=== PATIENT | male | born 1960 | race African-American/Black ===

== ENCOUNTER 2017-03-10 04:17 | Inpatient (IN) | payer OTHER ==
[2017-03-10] MEDS ORDERED: NITROGLYCERIN SL TABS 0.4 MG TAB SUBLINGUAL PRN ×2 (04:18→14:32)
[2017-03-10] MEDS ORDERED: ASPIRIN 81 MG CHEW PO STA ×2 (04:18)
[2017-03-10] MEDS ORDERED: SODIUM CHLORIDE 0.9% 1,000 ML IV STA (04:18)
[2017-03-10] MEDS ORDERED: MORPHINE SULFATE 4 MG/ML SYRINGE IV PRN (04:18)
--- NOTE | 2017-03-10 04:20 | ED ---
General Adult HPI - General Stated complaint: chest pain Time Seen by Provider: 03/10/17 04:18 Source: RN notes reviewed, old records reviewed - History of Present Illness Initial comments: This is a 56-year-old male to the ER for evaluation. The patient presents today for evaluation of chest pain. Patient has severe chest pain. Prior history of heart attack parishes stents. Patient states pain feels just like prior history. Patient is newly areas of doctors in area no recent cardiac evaluation. Patient is not using any current medications. Patient denies any fever cough or congestion, no travel history - Related Data Home Medications Medication Instructions Recorded Confirmed No Known Home Medications [No 03/10/17 03/10/17 Known Home Medications] Allergies Allergy/AdvReac Type Severity Reaction Status Date / Time Bees Allergy Swelling Uncoded 03/10/17 04:26 pickles Allergy Rash/Hives Uncoded 03/10/17 04:26 Review of Systems ROS Statement: Those systems with pertinent positive or pertinent negative responses have been documented in the HPI. ROS Other: All systems not noted in ROS Statement are negative. General Exam General appearance: alert, in no apparent distress Head exam: Present: atraumatic, normocephalic, normal inspection Eye exam: Present: normal appearance, PERRL, EOMI. Absent: scleral icterus, conjunctival injection, periorbital swelling ENT exam: Present: normal exam, mucous membranes moist Neck exam: Present: normal inspection. Absent: tenderness, meningismus, lymphadenopathy Respiratory exam: Present: normal lung sounds bilaterally. Absent: respiratory distress, wheezes, rales, rhonchi, stridor Cardiovascular Exam: Present: regular rate, normal rhythm, normal heart sounds. Absent: systolic murmur, diastolic murmur, rubs, gallop, clicks GI/Abdominal exam: Present: soft, normal bowel sounds. Absent: distended, tenderness, guarding, rebound, rigid Extremities exam: Present: normal inspection, full ROM, normal capillary refill. Absent: tenderness, pedal edema, joint swelling, calf tenderness Back exam: Present: normal inspection Neurological exam: Present: alert, oriented X3, CN II-XII intact Psychiatric exam: Present: normal affect, normal mood Skin exam: Present: warm, dry, intact, normal color. Absent: rash Course Vital Signs 03/10/17 03/10/17 03/10/17 04:18 04:25 05:19 Temperature 98.3 F Pulse Rate 75 71 64 Respiratory 18 18 18 Rate Blood Pressure 123/76 123/76 117/74 O2 Sat by Pulse 99 100 Oximetry 03/10/17 05:52 Temperature Pulse Rate Respiratory Rate Blood Pressure 113/71 O2 Sat by Pulse Oximetry - Reevaluation(s) Reevaluation #1: 03/10/17 06:17 Patient remains chest pain EKG Findings - EKG Comments: EKG Findings:: EKG shows normal sinus rhythm is 68, CT 132, QRS 90, QTC 414 Medical Decision Making - Medical Decision Making 35 LDR for evaluation of chest pain, history of chest pain and heart attack, history of stent, patient be admitted for cardiac observation, telemetry, still troponin cardiac observation - Lab Data Result diagrams: 03/10/17 04:30 03/10/17 04:30 - Radiology Data Radiology results: report reviewed (Chest x-ray is negative for acute disease), image reviewed Critical Care Time Critical Care Time: Yes Total Critical Care Time: 31 Disposition Clinical Impression: Chest pain Disposition: ADMITTED IP TO THIS [facility] Condition: Undetermined
[2017-03-10 04:41] LABS: Basophils % (A) 1 %; CH 27.6; CHCM 30.6; Eosinophils # (A) 0.3 k/uL (0-0.7); Eosinophils % (A) 3 %; HCT 45.2 % (39.0-53.0); HGB 14.3 gm/dL (13.0-17.5); Hypochromasia Slight; Luc # (Auto) 0.15; Luc % (Auto) 2; Lymphocytes # (A) 2.2 k/uL (1.0-4.8); Lymphocytes % (A) 30 %; MCH 28.6 pg (25.0-35.0); MCHC 31.7 g/dL (31.0-37.0); MCV 90.5 fL (80.0-100.0); Mean Platelet Volume 7.2; Monocytes # (A) 0.6 k/uL (0-1.0); Monocytes % (A) 8 %; Neutrophils % (A) 55 %; RDW 13.1 % (11.5-15.5); WBC 7.3 k/uL (3.8-10.6); WBC (Perox) 7.39
[2017-03-10 04:52] LABS: ALT 25 U/L (21-72); AST 26 U/L (17-59); Alkaline Phosphatase 74 U/L (38-126); Anion Gap 9 mmol/L; Blood Urea Nitrogen 13 mg/dL (9-20); Calcium 9.8 mg/dL (8.4-10.2); Carbon Dioxide 27 mmol/L (22-30); Chloride 107 mmol/L (98-107); Glucose 105 mg/dL (74-99); Non-African American GFR(MDRD) >60 (>60 ml/min/1.73 sqM); Potassium 3.9 mmol/L (3.5-5.1); Sodium 143 mmol/L (137-145); Total Bilirubin 0.4 mg/dL (0.2-1.3); Total Protein 7.2 g/dL (6.3-8.2)
[2017-03-10 04:56] LABS: Partial Thromboplastin Time 25.5 sec (22.0-30.0); Prothrombin Time 10.3 sec (9.0-12.0)
--- NOTE | 2017-03-10 05:07 | XR ---
EXAM: XR Chest, 2 Views CLINICAL HISTORY: Reason: Chest Pain TECHNIQUE: Frontal and lateral views of the chest. COMPARISON: No relevant prior studies available. FINDINGS: Lungs: Right lower lobe basilar atelectasis with possible infiltrate. Pleural space: Unremarkable. No pneumothorax. Heart: Unremarkable. No cardiomegaly. Mediastinum: Unremarkable. Bones/joints: Unremarkable. IMPRESSION: Right lower lobe basilar atelectasis with possible infiltrate.
[2017-03-10 05:18] LABS: Creatine Kinase MB 0.9 ng/mL (0.0-2.4); Troponin I 0.03 ng/mL (0.000-0.034)
[2017-03-10 12:11] LABS: Creatine Kinase MB 81.7 ng/mL (0.0-2.4); Troponin I 15.5 ng/mL (0.000-0.034)
[2017-03-10] MEDS ORDERED: ATORVASTATIN 80 MG TAB PO STA (13:01)
[2017-03-10] MEDS ORDERED: HEPARIN SODIUM,PORCINE 5,000 UNIT/ML 1 ML VIAL IV STA (13:04)
--- NOTE | 2017-03-10 13:07 | P.CRDCN ---
History of Present Illness Consult date: 03/10/17 Requesting physician: Bryce Herring Consult reason: chest pain Chief complaint: Chest Pain History of present illness: This is a 56-year-old -[place] gentleman with known history of coronary artery disease and prior stent placement in 2013, patient is unsure what vessel he had done at that time, but states that it was performed in [place] where he resides. He is a truck driver heavy. Patient also has history of hypertension, hyperlipidemia, he has stopped all of his medications approximately a year and a half ago. He also smokes cigarettes. Patient states that he was in his truck ready to sleep for the night, when he developed midsternal chest pressure and heaviness that radiated across the chest, he got extremely diaphoretic, states that the pain reminded him of what he had was with his prior myocardial infarction, and for this reason he came to the emergency room for further evaluation. Initial EKG on presentation here showed a normal sinus rhythm with incomplete right bundle branch block pattern and ST elevation in V1 and aVR. CBC was normal. D-dimer 0.33, potassium 3.9, BUN 13, creatinine 1.0. Initial troponin 0.030, subsequent troponin 15.5. Blood pressure at the time of my examination 138/76 with a heart rate in the 60s. At the time of my examination, patient is having mild chest discomfort. A subsequent EKG was performed which showed a normal sinus rhythm incomplete right bundle branch block pattern with anterior ST elevation on his EKG. Patient was instructed that he'll need to be taken to the cardiac catheterization lab immediately, the risks and the benefits were explained to the patient in detail and he is willing to proceed. We will give the patient a bolus of IV heparin, aspirin, and 80 mg of Lipitor now. Past Medical History Past Medical History: Coronary Artery Disease (CAD), Chest Pain / Angina, Myocardial Infarction (LA), Skin Disorder Additional Past Medical History / Comment(s): eczema Last Myocardial Infarction Date:: 2013 History of Any Multi-Drug Resistant Organisms: None Reported Past Surgical History: Heart Catheterization With Stent Additional Past Surgical History / Comment(s): 2013 PCI with stent at [facility] in [place]. Past Anesthesia/Blood Transfusion Reactions: No Reported Reaction Date of Last Stent Placement:: 2013 Past Psychological History: No Psychological Hx Reported Additional Psychological History / Comment(s): Pt recently moved to [place]. He is a [employer] [place] . He is a truck/otr company driver. He is independent. Smoking Status: Current every day smoker Past Alcohol Use History: Rare Additional Past Alcohol Use History / Comment(s): Pt started smoking in 1979 and is a ppd smoker. Past Drug Use History: None Reported - Past Family History Father Family Medical History: CVA/TIA Additional Family Medical History / Comment(s): Father of a massive stroke at 73 or 74 yrs of age. Mother Family Medical History: No Reported History Additional Family Medical History / Comment(s): Mother is healthy. Medications and Allergies Home Medications Medication Instructions Recorded Confirmed Type No Known Home Medications [No 03/10/17 03/10/17 History Known Home Medications] Allergies Allergy/AdvReac Type Severity Reaction Status Date / Time venom-honey bee Allergy Unknown Verified 03/10/17 07:24 pickles AdvReac Rash/Hives Uncoded 03/10/17 07:24 Physical Exam Vitals: Vital Signs Pulse Resp BP Pulse Ox 03/10/17 12:29 61 16 138/76 100 03/10/17 10:58 76 18 105/65 100 03/10/17 07:58 70 20 90/50 99 03/10/17 05:52 113/71 03/10/17 05:19 64 18 117/74 100 03/10/17 04:25 71 18 123/76 PHYSICAL EXAMINATION: HEENT: Head is atraumatic, normocephalic. Pupils equal, round. Neck is supple. There is no elevated jugular venous pressure. HEART EXAMINATION: Heart S1, S2 normal. No murmur or gallop heard. CHEST EXAMINATION: Lungs are clear to auscultation and precussion. No chest wall tenderness is noted on palpation or with deep breathing. ABDOMEN: Soft, nontender. Bowel sounds are heard. No organomegaly noted. EXTREMITIES: 2+ peripheral pulses with no evidence of peripheral edema and no calf tenderness noted. NEUROLOGIC patient is awake, alert and oriented -3. . Results 03/10/17 04:30 03/10/17 04:30 Cardiac Enzymes 03/10/17 03/10/17 03/10/17 Range/Units 04:30 04:30 10:52 AST 26 (17-59) U/L CK-MB (CK-2) 0.9 81.7 H* (0.0-2.4) ng/mL Troponin I 0.030 15.500 H* (0.000-0.034) ng/mL Coagulation 03/10/17 Range/Units 04:30 PT 10.3 (9.0-12.0) sec APTT 25.5 (22.0-30.0) sec CBC 03/10/17 Range/Units 04:30 WBC 7.3 (3.8-10.6) k/uL RBC 5.00 (4.30-5.90) m/uL Hgb 14.3 (13.0-17.5) gm/dL Hct 45.2 (39.0-53.0) % Plt Count 184 (150-450) k/uL Comprehensive Metabolic Panel 03/10/17 Range/Units 04:30 Sodium 143 (137-145) mmol/L Potassium 3.9 (3.5-5.1) mmol/L Chloride 107 (98-107) mmol/L Carbon Dioxide 27 (22-30) mmol/L BUN 13 (9-20) mg/dL Creatinine 1.02 (0.66-1.25) mg/dL Glucose 105 H (74-99) mg/dL Calcium 9.8 (8.4-10.2) mg/dL AST 26 (17-59) U/L ALT 25 (21-72) U/L Alkaline Phosphatase 74 (38-126) U/L Total Protein 7.2 (6.3-8.2) g/dL Albumin 4.0 (3.5-5.0) g/dL Current Medications Generic Name Dose Route Start Last Admin Trade Name Freq PRN Reason Stop Dose Admin Aspirin 325 mg 03/11/17 09:00 Aspirin PO DAILY LIANG Sodium Chloride 1,000 mls @ 100 mls/hr 03/10/17 04:18 03/10/17 05:00 Saline 0.9% IV 03/10/17 14:17 100 mls/hr .Q10H STA Administration Morphine Sulfate 4 mg 03/10/17 04:18 03/10/17 05:05 Morphine Sulfate (Inj) IV 4 mg Q4HR PRN Administration Pain Nitroglycerin 0.4 mg 03/10/17 04:18 03/10/17 05:45 Nitrostat SUBLINGUAL 0.4 mg Q5M PRN Administration Chest Pain 03/10/17 04:30 03/10/17 04:30 EKG Interpretations (text) Initial EKG shows a normal sinus rhythm with right bundle branch block pattern and ST elevation in aVR and lead V1. Subsequent EKG shows a normal sinus rhythm with incomplete right bundle branch block pattern and anterior ST elevation. Assessment and Plan Plan: Assessment and plan #1 anterior wall myocardial infarction #2 history of coronary artery disease with prior stent placement in 2013 #3 hypertension, untreated #4 hyperlipidemia, untreated #5 nicotine dependance Plan The patient has been advised to undergo emergent cardiac catheterization, we will give him a bolus of IV heparin, along with aspirin and Lipitor. Risks and the benefits were explained to the patient in detail and he is willing to proceed. DNP note has been reviewed, I agree with a documented findings and plan of care. Patient was seen and examined.
[2017-03-10] MEDS ORDERED: HEPARIN SODIUM,PORCINE/D5W PMX 25,000 UNIT in DEXTROSE/WATER 1 500ML.BAG IV SCH (13:15)
[2017-03-10] MEDS ORDERED: LIDOCAINE 2% INJ 20 MG/ML (20 ML MDV) ONE (13:22)
[2017-03-10] MEDS ORDERED: MIDAZOLAM 2 MG/2 ML VIAL IV ONE (13:40)
[2017-03-10] MEDS ORDERED: VERAPAMIL 2.5 MG/ML 2 ML AMP ONE (13:40)
[2017-03-10] MEDS ORDERED: MIDAZOLAM 2 MG/2 ML VIAL ONE (13:42)
[2017-03-10] MEDS ORDERED: HEPARIN SODIUM 1,000 UNIT/ML VIAL ONE (13:43)
[2017-03-10] MEDS ORDERED: LIDOCAINE 2% INJ 20 MG/ML SQ ONE (13:45)
[2017-03-10] MEDS ORDERED: VERAPAMIL SYRINGE (5 MG/10 ML) INTRAARTER ONE ×2 (13:47→14:22)
[2017-03-10] MEDS ORDERED: IV FLUID CONTINUATION 500 ML IV ONE (13:52)
[2017-03-10] MEDS ORDERED: BIVALIRUDIN BOLUS 250 MG/50 ML IV ONE (13:58)
[2017-03-10] MEDS ORDERED: BIVALIRUDIN 250 MG in SODIUM CHLORIDE 0.9% 50 ML IV ONE (13:59)
[2017-03-10] MEDS ORDERED: NITROGLYCERIN 1000MCG/10ML SYRINGE INTRACORON ONE ×2 (14:15→14:20)
[2017-03-10] MEDS ORDERED: PRASUGREL 10 MG TAB ONE (14:25)
[2017-03-10] MEDS ORDERED: ATROPINE SULFATE 0.1 MG/ML 10ML SYRINGE IV PRN (14:32)
[2017-03-10] MEDS ORDERED: MAG HYDROX/AL HYDROX/SIMETH 30 ML CUP PO PRN (14:32)
[2017-03-10] MEDS ORDERED: RX INFO: IV CONTRAST WAS GIVEN 1 EACH MISC MISCELLANE PRN (14:32)
[2017-03-10] MEDS ORDERED: PRASUGREL 10 MG TAB PO ONE (14:40)
[2017-03-10] MEDS ORDERED: IOHEXOL 350 MG/ML 125ML BOTTLE INJ ONE (14:44)
[2017-03-10] MEDS ORDERED: SODIUM CHLORIDE 0.9% 1,000 ML IV SCH (14:45)
[2017-03-10 17:18] LABS: Troponin I 36.9 ng/mL (0.000-0.034)
--- NOTE | 2017-03-10 19:58 | HP ---
DATE OF ADMISSION: CHIEF COMPLAINT: Chest pain. HISTORY OF PRESENT ILLNESS: Mr. Ibarra is a 56-year-old male with known history of coronary artery disease, status post stent placement 2 years ago in 2014, hypertension, hyperlipidemia, and has not been taking his medication for the past 1-1/2 years came to the hospital with complaints of chest discomfort. 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 It was associated with significant diaphoresis and he felt pain most like his previous ME. Denied any radiation to the arm. Denied any headache or dizziness. Patient came to the hospital for evaluation. Patient had EKG done that showed normal sinus rhythm with incomplete right bundle branch block and ST elevation in the aVR and aVL as well as V1. Patient had initial troponin negative. Subsequent troponins elevated to 15.5 and patient was taken to cardiac catheterization by cardiology and currently had stent placed. Patient is currently chest pain free now. Denied any nausea or vomiting. No recent illnesses. No sick contacts at home. REVIEW OF SYSTEMS: CONSTITUTIONAL: No fever. No chills. No weakness, malaise. RESPIRATORY: No cough, no sputum production. CARDIOVASCULAR: Patient did have chest pain. No complaints of chest pain now. No nausea or vomiting. No chest pain or short of breath. ABDOMEN: No nausea, vomiting or abdominal pain. GENITOURINARY: Negative. ENDOCRINE: Negative. PSYCHIATRY: Negative. SKIN: Negative. MUSCULOSKELETAL: Negative. All other fourteen-point review of systems negative except as above. PAST MEDICAL HISTORY: Coronary artery disease, history of ME, chest pain and eczema. PAST SURGICAL HISTORY: Cardiac catheterization and stent placement in 2013 at [facility] in [place]. SOCIAL HISTORY: Patient currently is a tractor trailer truck driver and he is [employer] [place] . Recently moved to [facility]. Currently an everyday smoker. Denied any alcohol use. Denied any drugs or IVDU. Patient started to smoke in 1979 and is a 1 pack per day smoker. FAMILY HISTORY: Father had CVA and transient ischemic attack and of massive stroke. He was a heavy alcoholic user. Mother is healthy. HOME MEDICATIONS: None at this time. ALLERGIES: Honeybee venom and pickles. PHYSICAL EXAMINATION: A 56-year-old male lying in the bed comfortably, awake, alert, oriented, x3. Appears to be in no apparent distress. VITALS: Blood pressure is 122/81, pulse is 58, respiration 18, temperature afebrile, pulse ox 99% on room air. HEENT: Atraumatic, normocephalic. Neck is supple. No JVD. CVS: S1, S2 heard. No murmurs, no gallop. LUNGS: Bilateral air entry is present. No wheezing. No crackles. ABDOMEN: Soft, nontender. Bowel sounds present. CENTRAL NERVOUS SYSTEM: Awake, alert, oriented x3. No focal deficit. EXTREMITIES: No edema. Pulses palpable bilaterally. No clubbing or cyanosis. PSYCHIATRIC: Cooperative. LABORATORY DATA: WBC 7.3, hemoglobin 14.3, platelets 184. INR 1.0. D-dimer 0.33. Sodium 143, potassium 3.9, chloride 107, bicarb is 27. BUN 13, creatinine 1.02. Initial troponin 0.030 and 15.5. Lipase is 104. Chest x-ray negative. IMPRESSION: 1. Acute anterior wall myocardial infarction, status post cardiac catheterization and stent placement. 2. History of coronary artery disease, status post stent placement in 2013. 3. Noncompliant with medications for the past one and a half years. 4. Hypertension. 5. Hyperlipidemia. 6. Nicotine addiction. DISCUSSION AND PLAN: Patient underwent cardiac catheterization and stent placement. Continue the aspirin and prasugrel. Continue the metoprolol and lisinopril and statins and follow up closely. Continue the telemetry monitoring. Cardiology is on board. Further recommendations based on clinical course.
[2017-03-10] MEDS ORDERED: ACETAMINOPHEN TAB 325 MG TAB PO PRN (20:01)
[2017-03-10] MEDS: METOPROLOL TARTRATE 25 MG TAB PO SCH (20:27)
--- NOTE | 2017-03-11 04:35 | CC ---
DATE OF SERVICE: 03/10/2017 PERFORMING PHYSICIAN: Aris Balbuena MD, casino shift manager. PROCEDURE PERFORMED: 1. Selective right and left coronary angiogram. 2. Successful stenting of the mid left circumflex using 3.0 x 23 mm Xience PATRICIA with a good angiographic result. INDICATION: This is a pleasant 56-year-old gentleman who presented to the hospital with chest discomfort consistent with angina. The cardiac enzymes were checked and came in to be abnormal. The EKG showed findings consistent with ischemia as well. The patient is known to have coronary artery disease with prior stenting of the LAD was performed in [place] in the past. He is a water truck driver. APPROACH: Right radial artery. COMPLICATIONS: None. LEVEL OF SEDATION: Moderate with sedation length of 38 minutes. PROCEDURE DESCRIPTION: After obtaining an informed consent, the patient was brought to the cardiac supervisor laboratory. Right radial artery was cannulated using micropuncture technique. The micropuncture wire passed easily, then I placed 6 Setswana sheath in the right radial artery. Subsequently, I did selective right and left coronary angiogram using JR4 and JL3.5 catheters. Before I started angiogram, I gave the patient 2 mg of verapamil IA without any heparin. I did after that intervene on the left circumflex. Please see a separate paragraph for that. SELECTIVE CORONARY ANGIOGRAM: 1. The right coronary artery is a large-caliber vessel and it is a dominant vessel. The proximal RCA appeared to have mild disease only. The mid RCA appeared to have disease in the range of 50%. The RCA distally appeared to be angiographically normal. 2. The left main is angiographically normal. It bifurcates into the left circumflex and left anterior descending artery. 3. The left circumflex is a large-caliber vessel and a nondominant vessel. The proximal circumflex has a lesion appeared to be in the range of 50%. It gives rises into the first OM branch, which has a lesion proximally, seems to be in the range of 95% to 99%. This is a large-caliber vessel. The left circumflex continues after that as a moderate caliber vessel in the AV groove. 4. The left anterior descending artery, the proximal LAD is stented with intermediate in-stent restenosis appeared to be in the range of 50% to 60%. The mid LAD is angiographically normal. The LAD distally is normal. PCI OF THE LEFT CIRCUMFLEX: Anticoagulation was initiated using Angiomax. Subsequently, I took JL3.5 guide and the left main was engaged. A whisper wire was used to wire the left circumflex. Subsequently, I predilated using 2.0 x 12 mm balloon. Then I deployed a 3.0 x 23 mm Xience PATRICIA, where the stent was positioned under fluoroscopy guidance and it was deployed under 12 atmospheres for 20 seconds. The following angiogram showed good angiographic results without perforation and without dissection. The procedure was completed without any complication. CONCLUSION: 1. Intermediate de dayne disease involving the mid RCA. 2. Critical disease involving the mid left circumflex. 3. Intermediate in-stent restenosis involving the proximal LAD. 4. Successful stenting of the mid left circumflex using 3.0 x 23 mm Xience PATRICIA with a good angiographic result. POSTPROCEDURE MANAGEMENT: 1. Dual antiplatelet therapy. 2. FFR of the LAD. 3. Follow up with the patient.
[2017-03-11 06:24] LABS: Cholesterol 197 mg/dL (<200); HDL Cholesterol 38 mg/dL (40-60); Non-African American GFR(MDRD) >60 (>60 ml/min/1.73 sqM); Triglycerides 122 mg/dL (<150)
[2017-03-11] MEDS ORDERED: ASPIRIN 325 MG TAB PO SCH (09:00)
[2017-03-11] MEDS: METOPROLOL TARTRATE 25 MG TAB PO SCH ×2 (09:11→22:06)
[2017-03-11] MEDS: ASPIRIN 325 MG TAB PO SCH (09:11)
[2017-03-11] MEDS: LISINOPRIL 10 MG TAB PO SCH (09:11)
[2017-03-11] MEDS: PRASUGREL 10 MG TAB PO SCH (09:11)
--- NOTE | 2017-03-11 12:13 | ECHOF ---
Referral Reason:assess lvf MEASUREMENTS -------- HEIGHT: 175.3 cm WEIGHT: 94.8 kg BP: 91/53 IVSd: 1.1 cm (0.6 - 1.1) LVIDd: 4.6 cm (3.9 - 5.3) LVPWd: 1.3 cm (0.6 - 1.1) IVSs: 1.6 cm LVIDs: 3.2 cm LVPWs: 1.7 cm LA Diam: 3.4 cm (2.7 - 3.8) LAESV Index (A-L): 16.96 ml/m Ao Diam: 3.3 cm (2.0 - 3.7) AV Cusp: 2.1 cm (1.5 - 2.6) LA Diam: 3.2 cm (2.7 - 3.8) MV EXCURSION: 18.829 mm (> 18.000) MV EF SLOPE: 94 mm/s (70 - 150) EPSS: 0.8 cm MV E Meek: 0.98 m/s MV DecT: 165 ms MV A Meek: 0.91 m/s MV E/A Ratio: 1.07 RAP: 5.00 mmHg RVSP: 21.81 mmHg FINDINGS -------- Sinus rhythm. This was a technically good study. The left ventricular size is normal. Overall left ventricular systolic function is normal with, an EF between 60 - 65 %. The right ventricle is normal in size and function. Normal LA size by volume 22+/-6 ml/m2. The right atrium is normal in size. Aortic valve is trileaflet and is mildly thickened. There is no evidence of aortic regurgitation. There is no evidence of aortic stenosis. The mitral valve leaflets are mildly thickened. There is trace mitral regurgitation. Trace tricuspid regurgitation present. There is no evidence of pulmonary hypertension. The right ventricular systolic pressure, as measured by Doppler, is 21.81mmHg. Pulmonic valve appears structurally normal. The aortic root size is normal. There is no pericardial effusion. CONCLUSIONS -------- 1. Sinus rhythm. 2. The aortic root size is normal. 3. There is no pericardial effusion. 4. Overall left ventricular systolic function is normal with, an EF between 60 - 65 %. 5. Normal LA size by volume 22+/-6 ml/m2. 6. Aortic valve is trileaflet and is mildly thickened. 7. The mitral valve leaflets are mildly thickened. 8. There is trace mitral regurgitation. 9. Trace tricuspid regurgitation present. 10. There is no evidence of pulmonary hypertension. 11. The right ventricular systolic pressure, as measured by Doppler, is 21.81mmHg. TARIFF SUPERVISOR: John Paul Osorio RDCS
--- NOTE | 2017-03-11 15:49 | P.PN ---
Subjective Principal diagnosis: Acute NV This is a 56-year-old -[place] gentleman with known history of coronary artery disease and prior stent placement in 2013, patient is unsure what vessel he had done at that time, but states that it was performed in [place] where he resides. He is a forklift truck mechanic. Patient also has history of hypertension, hyperlipidemia, he has stopped all of his medications approximately a year and a half ago. He also smokes cigarettes. He presented to the hospital with an acute myocardial infarction. He was taken down to the cardiac catheterization lab where he was found to have intermediate didn't know what disease involving the mid RCA, critical disease in the midcircumflex, intermediate in-stent restenosis of the proximal LAD, he underwent successful stenting of the mid left circumflex. Patient was seen and examined this morning , denies any chest pain or difficulty in breathing. He has been up ambulating without any difficulty. A cardiogram with Doppler study was performed which revealed an ejection fraction of 60-65%. Objective - Vital Signs Vital signs: Vital Signs Temp 98.4 F 03/11/17 11:42 Pulse 61 03/11/17 11:42 Resp 18 03/11/17 11:42 BP 99/54 03/11/17 11:42 Pulse Ox 98 03/11/17 15:14 Intake & Output 03/10/17 03/11/17 03/11/17 18:59 06:59 18:59 Intake Total 289 1000 540 Output Total 1000 Balance 289 0 540 Weight 95.1 kg Intake: IV 129 1000 Sodium Chloride 0.9% 1, 1000 000 ml @ 100 mls/hr IV . Q10H LIANG Rx#:[id number] Intake, IV Titration 100 0 Amount Sodium Chloride 0.9% 1, 100 0 000 ml @ 100 mls/hr IV . Q10H LIANG Rx#:[id number] Oral 60 540 Output: Urine 1000 Other: Voiding Method Toilet Toilet Urinal Urinal # Voids 1 - Exam PHYSICAL EXAMINATION: HEENT: Head is atraumatic, normocephalic. Pupils equal, round. Neck is supple. There is no elevated jugular venous pressure. HEART EXAMINATION: Heart S1, S2 normal. No murmur or gallop heard. CHEST EXAMINATION: Lungs are clear to auscultation and precussion. No chest wall tenderness is noted on palpation or with deep breathing. ABDOMEN: Soft, nontender. Bowel sounds are heard. No organomegaly noted. Right radial site clean and dry, good distal pulse. EXTREMITIES: 2+ peripheral pulses with no evidence of peripheral edema and no calf tenderness noted. NEUROLOGIC patient is awake, alert and oriented -3. . - Labs CBC & Chem 7: 03/10/17 04:30 03/11/17 05:27 Labs: Abnormal Lab Results - Last 24 Hours (Table) 03/10/17 03/11/17 Range/Units 16:22 05:27 Total Creatine Kinase 2059 H (55-170) U/L CK-MB (CK-2) 119.0 H* (0.0-2.4) ng/mL Troponin I 36.900 H* (0.000-0.034) ng/mL LDL Cholesterol, Calc 135 H (0-99) mg/dL HDL Cholesterol 38 L (40-60) mg/dL Assessment and Plan Plan: Assessment and plan #1 anterior wall myocardial infarction #2 history of coronary artery disease with prior stent placement in 2013 #3 hypertension, untreated #4 hyperlipidemia, untreated #5 nicotine dependance Plan Patient underwent successful stenting of the midcircumflex a, also has intermediate disease in the mid RCA and intermediate in-stent restenosis involving the proximal LAD. Patient has been encouraged to be up ambulating in the hallway today as tolerated. He will require FFR of the LAD, if he remains assymptomatic we will discharge him home in the next 48 hours, he can follow-up with the director of retail merchandising in [place]. If the patient however has further symptoms intervention of the other vessel will be performed here. DNP note has been reviewed, I agree with a documented findings and plan of care. Patient was seen and examined.
[2017-03-11] MEDS: ATORVASTATIN 80 MG TAB PO SCH (22:06)
[2017-03-11] MEDS: ZOLPIDEM 5 MG TAB PO PRN (22:12)
[2017-03-12] MEDS: PRASUGREL 10 MG TAB PO SCH (08:52)
[2017-03-12] MEDS: METOPROLOL TARTRATE 25 MG TAB PO SCH ×2 (08:52→21:10)
[2017-03-12] MEDS: ASPIRIN 325 MG TAB PO SCH (08:52)
--- NOTE | 2017-03-12 09:16 | PN ---
DATE OF SERVICE: 03/11/2017 INTERVAL HISTORY: Mr. Ibarra is a 56-year-old male with known history of coronary artery disease and stent placement and hypertension, hyperlipidemia was admitted to the hospital with complaints of chest discomfort. Patient was found to have acute anterior wall NH. Patient underwent a cardiac catheterization and stenting of mid circumflex. Cardiology is planning for catheterization for ( ) of FFR of LAD if the patient symptomatic. Currently, patient denied any complaints of chest pain, currently being monitored closely. Denied any overnight issues. Patient was encouraged to ambulate in the hallway. REVIEW OF SYSTEMS: CONSTITUTIONAL: No fever, no chills. RESPIRATORY: No cough or sputum production. CARDIOVASCULAR: No chest pain or short of breath. No leg swelling. ABDOMEN: No nausea, vomiting or abdominal pain. GENITOURINARY: Negative. ENDOCRINE: Negative. PSYCHIATRIC: Negative. SKIN: Negative. MUSCULOSKELETAL: Negative. All other 14-point review of systems negative except as above. CURRENT MEDICATIONS: Reviewed. PHYSICAL EXAMINATION: A 56-year-old male lying in bed comfortably, awake, alert, oriented x3. Appears to be in no apparent distress. VITALS: Blood pressure is 110/75, pulse is 62, respirations 18, temperature afebrile, pulse ox 97% on room air. HEENT: Atraumatic, normocephalic. Neck is supple. No JVD. CVS EXAM: S1, S2 heard. No murmurs, no gallop, no rub. LUNGS: Bilateral air entry is present. No wheezing. No crackles. Nonlabored breathing. ABDOMEN: Soft, nontender. Bowel sounds are present. CNC OPERATOR PROGRAMMER: Awake, alert and oriented x3. No focal deficit. EXTREMITIES: No edema. Pulses palpable bilaterally. No clubbing or cyanosis. PSYCHIATRIC: Cooperative. LABORATORY DATA: Reviewed. IMPRESSION: 1. Acute anterior wall myocardial infarction, status post cardiac catheterization and stent placement to mid circumflex. 2. History of coronary artery disease, status post stent placement in 2013. 3. Noncompliant with medication for the past 1-1/2 years. 4. Hypertension. 5. Hyperlipidemia. 6. Nicotine addiction. 7. Deep venous thrombosis prophylaxis. DISCUSSION AND PLAN: The patient will be continued on current management. Continue with aspirin and prasugrel. Continue with the blood pressure medications and follow up closely. The patient was encouraged ambulation. Cardiology is planning for another cardiac catheterization if the patient is symptomatic. Otherwise, there will monitor the patient for next 48 hours as per cardiology recommendations.
[2017-03-12] MEDS: LISINOPRIL 10 MG TAB PO SCH (12:34)
--- NOTE | 2017-03-12 15:00 | P.PN ---
Subjective Principal diagnosis: Acute [place] This is a 56-year-old -[place] gentleman with known history of coronary artery disease and prior stent placement in 2013, patient is unsure what vessel he had done at that time, but states that it was performed in [place] where he resides. He is a commercial trailer truck driver. Patient also has history of hypertension, hyperlipidemia, he has stopped all of his medications approximately a year and a half ago. He also smokes cigarettes. He presented to the hospital with an acute myocardial infarction. He was taken down to the cardiac catheterization lab where he was found to have intermediate didn't know what disease involving the mid RCA, critical disease in the midcircumflex, intermediate in-stent restenosis of the proximal LAD, he underwent successful stenting of the mid left circumflex. Patient was seen and examined this morning , denies any chest pain or difficulty in breathing. He has been up ambulating without any difficulty. Echocardiogram with Doppler study was performed which revealed an ejection fraction of 60-65%. Patient does have intermediate in- stent restenosis involving the proximal LAD. Dr. Em's recommendation was to proceed with FFR as an outpatient. Objective - Vital Signs Vital signs: Vital Signs Temp 98.1 F 03/12/17 12:00 Pulse 51 L 03/12/17 12:00 Resp 20 03/12/17 12:00 BP 106/67 03/12/17 12:00 Pulse Ox 99 03/12/17 12:00 Intake & Output 03/11/17 03/12/17 03/12/17 18:59 06:59 18:59 Intake Total 780 250 200 Output Total 1700 400 Balance 780 -1450 -200 Weight 93.6 kg Intake: Intake, IV Titration 0 Amount Sodium Chloride 0.9% 1, 0 000 ml @ 100 mls/hr IV . Q10H [facility] Rx#:[id number] Oral 780 250 200 Output: Urine 1700 400 Other: Voiding Method Toilet Toilet Toilet Urinal Urinal Urinal # Voids 1 # Bowel Movements 1 - Exam PHYSICAL EXAMINATION: HEENT: Head is atraumatic, normocephalic. Pupils equal, round. Neck is supple. There is no elevated jugular venous pressure. HEART EXAMINATION: Heart S1, S2 normal. No murmur or gallop heard. CHEST EXAMINATION: Lungs are clear to auscultation and precussion. No chest wall tenderness is noted on palpation or with deep breathing. ABDOMEN: Soft, nontender. Bowel sounds are heard. No organomegaly noted. Right radial site clean and dry, good distal pulse. EXTREMITIES: 2+ peripheral pulses with no evidence of peripheral edema and no calf tenderness noted. NEUROLOGIC patient is awake, alert and oriented -3. . - Labs CBC & Chem 7: 03/10/17 04:30 03/11/17 05:27 Assessment and Plan Plan: Assessment and plan #1 anterior wall myocardial infarction #2 history of coronary artery disease with prior stent placement in 2013 #3 hypertension, untreated #4 hyperlipidemia, untreated #5 nicotine dependance Plan Patient underwent successful stenting of the midcircumflex a, also has intermediate disease in the mid RCA and intermediate in-stent restenosis involving the proximal LAD. He will require FFR of the LAD as an outpatient. He may be able to be discharged from cardiology's perspective. Dr. Em's recommendation is that the patient stay in town until a follow-up appointment with him next week and then return to [place]. He's been instructed to follow with his neon sign installer immediately on return there to schedule and FFR. This was discussed in detail with the patient. DNP note has been reviewed, I agree with a documented findings and plan of care. Patient was seen and examined.
[2017-03-12 16:07] VITALS: RESP 16
[2017-03-12] MEDS: ZOLPIDEM 5 MG TAB PO PRN (21:10)
[2017-03-12] MEDS: ATORVASTATIN 80 MG TAB PO SCH (21:10)
[2017-03-13] MEDS ORDERED: BISMUTH SUBSALICYLATE 4,192 MG/240 ML BOTTLE PO PRN (04:16)
[2017-03-13 06:54] LABS: Basophils % (A) 0 %; CH 27.8; CHCM 31.1; Eosinophils # (A) 0.2 k/uL (0-0.7); Eosinophils % (A) 3 %; HCT 44.3 % (39.0-53.0); HDW 2.32; HGB 13.7 gm/dL (13.0-17.5); Luc # (Auto) 0.13; Luc % (Auto) 2; Lymphocytes # (A) 1.9 k/uL (1.0-4.8); Lymphocytes % (A) 25 %; MCH 27.8 pg (25.0-35.0); MCV 89.8 fL (80.0-100.0); Mean Platelet Volume 7.5; Monocytes # (A) 0.8 k/uL (0-1.0); Monocytes % (A) 12 %; Neutrophils # (A) 4.2 k/uL (1.3-7.7); Neutrophils % (A) 58 %; RBC 4.94 m/uL (4.30-5.90); RDW 12.9 % (11.5-15.5); WBC 7.3 k/uL (3.8-10.6); WBC (Perox) 7.18
[2017-03-13 07:18] LABS: Anion Gap 9 mmol/L; Blood Urea Nitrogen 13 mg/dL (9-20); Calcium 9.8 mg/dL (8.4-10.2); Carbon Dioxide 25 mmol/L (22-30); Chloride 106 mmol/L (98-107); Glucose 101 mg/dL (74-99); Non-African American GFR(MDRD) >60 (>60 ml/min/1.73 sqM); Potassium 4.1 mmol/L (3.5-5.1); Sodium 140 mmol/L (137-145)
[2017-03-13] MEDS: METOPROLOL TARTRATE 25 MG TAB PO SCH (09:09)
[2017-03-13] MEDS: ASPIRIN 325 MG TAB PO SCH (09:09)
[2017-03-13] MEDS: LISINOPRIL 10 MG TAB PO SCH (09:09)
[2017-03-13] MEDS: PRASUGREL 10 MG TAB PO SCH (09:09)
[2017-03-13 12:56] VITALS: TEMP 97.2
[2017-03-13 12:58] VITALS: BP 107/55; PULSE 64
--- NOTE | 2017-03-13 14:28 | PN ---
DATE OF SERVICE: 03/12/2017 INTERVAL HISTORY: Mr. Ibarra is a 56-year-old male with known history of coronary artery disease and stent placement and hypertension, hyperlipidemia, admitted to the hospital with complaints of chest discomfort. Patient was found to have acute NH and underwent cardiac catheterization with stenting of mid-circumflex. Cardiology recommended FFR of LAD as an outpatient, apparently upon followup with his resident service coordinator at [place]. Otherwise, patient is chest pain-free now. No, nausea, vomiting, or abdominal pain. Able to ambulate in the hallway without short of breath and chest pain. No cough or sputum production. No headache or dizziness or lightheadedness. No numbness or tingling. PSYCHIATRIC: Negative. SKIN: Negative. MUSCULOSKELETAL: Negative. All other 14-point review of systems negative except as above. Current medications reviewed. PHYSICAL EXAMINATION: A 56-year-old male, lying in the bed, comfortable, awake, alert, oriented x3. He appears to be in no apparent distress. VITALS: Blood pressure is 113/62, pulse is 64, respirations 16, temperature afebrile, pulse ox 98% on room air. HEENT: Atraumatic, normocephalic. Neck is supple. No JVD. CVS EXAM: S1, S2 heard. No murmurs, no gallop. LUNGS: Bilateral air entry is present. No wheezing. No crackles. Nonlabored breathing. Abdomen is soft, nontender. Bowel sounds are present. GRID TRIMMER: Awake, alert, and oriented x3. No focal deficit. EXTREMITIES: No edema. Pulses palpable bilaterally. No clubbing or cyanosis. PSYCHIATRIC: Cooperative. LABORATORY DATA: As reviewed. IMPRESSION: 1. Acute anterior wall infarction, status post cardiac catheterization, stent placement to mid-circumflex. Cardiology recommends FFR of LAD upon following with these cardiologists. 2. History of coronary artery disease, status post stent placement in 2013. 3. Noncompliant with medications for the past 4-1/2 years. 4. Hypertension. 5. Hyperlipidemia. 6. Nicotine addiction. 7. Deep venous thrombosis prophylaxis. DISCUSSION AND PLAN: Patient will be continued on the current management. Continue with the aspirin and Prasugrel. Continue with the blood pressure medications and follow closely. ( ). Cardiology recommended to follow with Dr. Balbuena before his leaving to [place].
== END 2017-03-13 15:09 | disposition home or self-care (01) | DRG 247 ==
LOC: EC 04:17 → 3OBS 04:20 → 6SEL 12:42 → OBSVTOIN 13:25 → 6SEL 15:23
PROVIDERS: ADMIT Hospitalist; ATTEND Hospitalist
PROC: B2111ZZ Fluoroscopy of Multiple Coronary Arteries using Low Osmolar Contrast (ICD-10-PCS; 2017-03-10)
PROC: 027034Z Dilation of Coronary Artery, One Artery with Drug-eluting Intraluminal Device, Percutaneous Approach (ICD-10-PCS; principal; 2017-03-10 13:25)
PROC: 4A023N7 Measurement of Cardiac Sampling and Pressure, Left Heart, Percutaneous Approach (ICD-10-PCS; 2017-03-10 13:25)
DX: I21.09 ST elevation (STEMI) myocardial infarction involving other coronary artery of anterior wall (principal); T82.855A Stenosis of coronary artery stent, initial encounter; E78.5 Hyperlipidemia, unspecified; I10 Essential (primary) hypertension; F17.210 Nicotine dependence, cigarettes, uncomplicated; I25.10 Atherosclerotic heart disease of native coronary artery without angina pectoris; I25.2 Old myocardial infarction; I45.10 Unspecified right bundle-branch block; L30.9 Dermatitis, unspecified; Z91.14 Patient's other noncompliance with medication regimen; Y83.1 Surgical operation with implant of artificial internal device as the cause of abnormal reaction of the patient, or of later complication, without mention of misadventure at the time of the procedure
CPT/HCPCS: 36415; 71020; 80048; 80053; 80061; 82550; 82553; 82565; 83690; 83735; 84484; 85025; 85379; 85610; 85730; 93005; 93306; 93454; 96361; 96374; 96375; 96376; 99291